=== PATIENT | male | born 1995 | race African-American/Black ===

== ENCOUNTER 2017-01-05 21:24 | Emergency (ER) | payer BC, OTHER ==
[~2017-01-05] VITALS: Ht 180.3 cm; Wt 68.8 kg
[~2017-01-05 21:24] MED LIST: [UNRECOGNIZED DRUG - CODE] PO
[2017-01-05 21:36] VITALS: TEMP 36.9; Ht 180.3 cm; Wt 68.8 kg
--- NOTE | 2017-01-05 22:16 | DIAGNOSTIC IMAGING REPORT ---
RIGHT WRIST MIN 3 VIEWS ROUTINE CLINICAL HISTORY: Right wrist and hand pain following injury. COMPARISON: Right hand radiographs March 15, 2016. FINDINGS: Alignment of the right wrist is anatomic. No acute fractures are identified. IMPRESSION: No acute fracture or dislocation of the right wrist. Electronically signed by: Valente Head M.D. 01/05/2017 10:15 PM Dictated Date/Time: 01/05/2017 10:13 PM
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
[2017-01-05 22:46] VITALS: BP 129/76; PULSE 68; O2SAT 100
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
== END 2017-01-05 22:47 | disposition home or self-care (01) ==
LOC: C.EDB 21:25 → C.EDD 22:47
DX: S67.21XA Crushing injury of right hand, initial encounter (principal); W23.0XXA Caught, crushed, jammed, or pinched between moving objects, initial encounter; M79.601 Pain in right arm; F17.200 Nicotine dependence, unspecified, uncomplicated

== ENCOUNTER → 2017-02-13 | Outpatient (CLI) | payer BC, OTHER ==
[~2017-02-13] MED LIST changes: +AMOX500C3 PO; -[UNRECOGNIZED DRUG - CODE] PO
--- NOTE | 2017-02-13 10:25 | DIAGNOSTIC IMAGING REPORT ---
CHEST 2 VIEWS ROUTINE HISTORY: Atypical CHEST PAIN COMPARISON: Chest 06/01/2010. FINDINGS: The lungs are clear. Cardiac silhouette is normal in size. No pleural effusions. No pneumothorax. IMPRESSION: No acute process. Electronically signed by: Mir Peace M.D. 02/13/2017 10:23 AM Dictated Date/Time: 02/13/2017 10:22 AM
== END | disposition home or self-care (01) ==
LOC: C.RAD1850 10:09
PROVIDERS: ATTEND Family Medicine
DX: R07.9 Chest pain, unspecified (principal)

== ENCOUNTER → 2017-04-18 | Outpatient (CLI) | payer BC, OTHER | END | disposition home or self-care (01) | LOC: C.LABSPEC 14:34 | PROVIDERS: ATTEND Family Medicine | DX: M79.1 Myalgia (principal); D72.1 Eosinophilia; M76.60 Achilles tendinitis, unspecified leg ==

== ENCOUNTER 2017-06-26 22:33 | Emergency (ER) | payer BC, OTHER ==
[~2017-06-26] VITALS: Ht 177.8 cm; Wt 69.5 kg
[2017-06-26 22:39] VITALS: TEMP 36.8; Ht 177.8 cm; Wt 69.5 kg
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
[2017-06-27] MEDS ORDERED: KETOROLAC TROMETHAMINE 30 MG/ML VIAL IV STA
[2017-06-27] MEDS ORDERED: SODIUM CHLORIDE 0.9% 1000ML 1,000 ML IV STA (00:02)
[2017-06-27 00:32] LABS: HEMATOCRIT 46.9 % (42-52); MEAN CELL VOLUME 86.5 fL (80-100); MEAN CORPUSCULAR HEMOGLOBIN 31.5 pg (25-34); MEAN CORPUSCULAR HGB CONC 36.5 g/dl (32-36); MEAN PLATELET VOLUME 9.2 fL (7.4-10.4); PLATELET COUNT 257 K/uL (130-400); RED BLOOD COUNT 5.42 M/uL (4.7-6.1)
[2017-06-27 00:52] LABS: CALCIUM 9.2 mg/dl (8.5-10.1); CREATININE 1.1 mg/dl (0.60-1.40); POTASSIUM 3.7 mmol/L (3.5-5.1)
[2017-06-27 00:55] LABS: ALB/GLOB RATIO 1.1 (0.9-2)
[2017-06-27] MEDS ORDERED: AMOX500C3 PO (01:16)
[2017-06-27 01:32] VITALS: BP 134/84; PULSE 74; O2SAT 100
--- NOTE | 2017-06-27 07:04 | DIAGNOSTIC IMAGING REPORT ---
HEAD CT NONCONTRAST CT DOSE: 638.56 mGycm HISTORY: Headaches. eval for intracranial mass or sinusitis TECHNIQUE: Multiaxial CT images of the head were performed without the use of intravenous contrast. Automated exposure control was utilized for this study. A dose lowering technique was utilized adhering to the principles of ALARA. Comparison: None. Findings: Mild mucosal thickening within the ethmoid air cells. Remaining paranasal sinuses are clear. The mastoid air cells are clear. The calvarium and skull base are intact. The ventricles and sulci are within normal limits. There is no mass, hematoma, midline shift, or acute infarct. Impression: No acute intracranial abnormality. Electronically signed by: Mir Peace M.D. 06/27/2017 7:03 AM Dictated Date/Time: 06/27/2017 7:01 AM
== END 2017-06-27 01:32 | disposition home or self-care (01) ==
LOC: C.EDB 22:34 → C.EDA 06-27 01:32
DX: R51 Headache (principal); J32.9 Chronic sinusitis, unspecified; D64.9 Anemia, unspecified; F17.200 Nicotine dependence, unspecified, uncomplicated